=== PATIENT | male | born 1990 | race Asian ===

== ENCOUNTER 2017-03-08 19:06 | Emergency (ER) | payer OTHER ==
[~2017-03-08] VITALS: Ht 172.7 cm; Wt 68.0 kg
[2017-03-08] MEDS ORDERED: ROBAXIN750 MG PO ×2 (22:15→22:16)
[2017-03-08 22:39] VITALS: BP 128/71
== END 2017-03-08 22:40 | disposition home or self-care (01) ==
LOC: EXP 19:06 → EME 19:06 → EXP 22:40
PROC: 0RSJXZZ Reposition Right Shoulder Joint, External Approach (ICD-10-PCS; principal; 2017-03-08)
DX: S43.004A Unspecified dislocation of right shoulder joint, initial encounter (principal); V00.321A Fall from snow-skis, initial encounter; Y93.23 Activity, snow (alpine) (downhill) skiing, snowboarding, sledding, tobogganing and snow tubing
CPT/HCPCS: 73030; 99281; 99284; J2405; J3010; J7030; S0020